=== PATIENT | female | born 1955 ===

== ENCOUNTER 2017-03-08 07:48 | Day surgery (SDC) | payer OTHER ==
[2016-05-04 11:27] VITALS: BMI 25.4
[2017-03-08] MEDS ORDERED: Lactated Ringer's 500 ML IV ONE (08:13)
[2017-03-08] MEDS ORDERED: Propofol 10 mg/ml Inj (20 ML) ONE (09:26)
[2017-03-08 10:08] VITALS: PULSE 58; TEMP 96.9; O2SAT 100
[2017-03-08 10:31] VITALS: BP 110/68; RESP 12
== END 2017-03-08 11:00 | disposition home or self-care (01) ==
LOC: H.ENDO 07:48
PROVIDERS: ATTEND Internal Medicine Gastroenterology
DX: Z12.11 Encounter for screening for malignant neoplasm of colon (principal); K21.9 Gastro-esophageal reflux disease without esophagitis; K30 Functional dyspepsia; E78.5 Hyperlipidemia, unspecified; I10 Essential (primary) hypertension; E03.9 Hypothyroidism, unspecified; K64.2 Third degree hemorrhoids; K22.8 Other specified diseases of esophagus; K31.7 Polyp of stomach and duodenum; K44.9 Diaphragmatic hernia without obstruction or gangrene; R10.13 Epigastric pain; K31.89 Other diseases of stomach and duodenum